=== PATIENT | female | born 1990 | race Asian ===

== ENCOUNTER 2022-12-08 13:03 | Outpatient (CLI) | payer BC ==
[~2022-12-08] VITALS: Ht 147.3 cm; Wt 62.7 kg
--- NOTE | 2022-12-08 13:00 | NUR ---
Pt arrived on unit ambulatory and with concerns for bleeding. Pt reports she was seen this early breastfeeding care specialist on the OB unit but sent home. Pt reports occasional contractions and some bleeding that started after she was sent home. Pt denies any leaking of fluid and reports normal movement. EFM and toco monitors started. Vital signs WNL. SVE by this RN /-2 with bloody show noted on exam. Dr. Dyer notified. See physician notification for details.
[2022-12-08] MEDS ORDERED: PRENATAL (13:36)
[2022-12-08] MEDS ORDERED: NATURAL IRON65 MG (13:37)
[2022-12-08 14:00] VITALS: BP 112/64; PULSE 69; TEMP 97.9
--- NOTE | 2022-12-08 15:04 | NUR ---
Pt off EFM to ambulate and use the birthing ball.
--- NOTE | 2022-12-08 16:45 | NUR ---
SVE with no change. Pt requesting to go home until labor contractions worsen. Dr Dyer notified. Discharge instructions, labor precautions and follow up care reviewed with pt and .
== END 2022-12-08 17:10 | disposition home or self-care (01) ==
LOC: LDRO 13:03
DX: Z34.93 Encounter for supervision of normal pregnancy, unspecified, third trimester (principal); Z3A.40 40 weeks gestation of pregnancy

== ENCOUNTER 2022-12-09 08:39 | Inpatient (IN) | payer BC ==
[~2022-12-09] VITALS: Ht 147.3 cm; Wt 63.0 kg
[2022-12-09] VITALS (36 sets, daily range): BP systolic 95–124; BP diastolic 53–84; PULSE 60–82; TEMP 97.8–98.6
[~2022-12-09 08:39] MED LIST: NATURAL IRON65 MG; PRENATAL
--- NOTE | 2022-12-09 08:50 | NUR ---
Pt arrived on unit ambulatory and with concerns for worsening contractions. Pt denies any leaking of fluid but report continued bleeding and reports normal movement. EFM and toco monitors started. Vital signs WNL. SVE by this RN /-2 with bloody show noted on exam glove. Dr. Dyer on the unit and notified. See physician notification for details.
--- NOTE | 2022-12-09 09:10 | NUR ---
0910Report received from Kojo Carbajal RN. RN to bedside and reviews plan of care with pt and spouse. 0920IV to left FA. Labs obtained via IV site. LR infusing. Pt requesting epidural. 926L. Jose DIRECTOR OF BROADCAST notified pt requesting epidural. Labs pending. Per Darwin Garcia CRNA, Jacques Cadena CRNA will be on unit to place epidural in approx 20min. 0937Pt up to bathroom to void. 49Dr. Dyer to bedside. Reviews plan of care with pt to include AROM. Pt agreeable. AROM at this time for moderate amout of clear amniotic fluid. Marielos care provided, pt wedge right. SVE per Dr. Dyer . 0959Jacques Cadena CRNA at bedside for epidural placement. Pt to edge of bed. FHR tracing intermittently due to maternal position. RN remains at bedside. 1005Single shot at this time by Jacques Cadena CRNA. 1009Pt wedge left. Plan of care and safety precautions reviewed with pt who verbalizes understanding. Resting with call light within reach.
[2022-12-09 09:33] LABS: BASO % 0.1 % (0.0-2.0); GRAN # 12.4 K/mm3 (1.4-6.5); GRAN % 87.3 % (42.2-75.2); HEMATOCRIT 41.7 % (37.0-47.0); HEMOGLOBIN 14.2 g/dl (12.5-16.0); LYMPH # 1.2 K/mm3 (1.2-3.4); LYMPH % 8.4 % (20.0-51.0); MEAN CELL VOLUME 85 fl (80.0-100.0); MEAN CORPUSCULAR HEMOGLOBIN 29 pg (27-31); MEAN CORPUSCULAR HGB CONC 34 g/dl (33.0-37.0); MONO # 0.5 K/mm3 (0.1-0.6); MONO % 3.6 % (1.7-9.3); PLATELET COUNT 179 K/mm3 (130-400); RED BLOOD COUNT 4.92 M/mm3 (4.10-5.30); REDCELL DISTRIBUTION WIDTH-CV 17.7 % (11.5-14.5)
--- NOTE | 2022-12-09 13:05 | NUR ---
1305Dr. Manisha at nurses desk and reviews strip. Orders to augment with pitocin per protocol. 1308Plan of care reviewed with pt and spouse who verbalizes understanding and agreement to pitocin augmentation.
--- NOTE | 2022-12-09 13:54 | NUR ---
1354SVE C/+2. Catheter removed. Marielos care provided. Patient instructed on pushing with ctx. 1402Pt begins to push with contractions with RN at bedside. 1500Patient continues to push with ctx. RN remains at bedside. Strong maternal effort. Slow progress. 1518Small crown noted with pushes. Prolonged 3min decel with FHR down to 80bmp. LR bolus. Dr. Dyer updated on pt. See physician notification. 1525DrMainor Dyer at bedside for delivery. 1600DrMainor Dyer consents pt for VAVD. Pt agreeable to plan of care. Darwin Garcia RAW SCALES OPERATOR notified and at bedside. Vacuum placed to occiput. 1602Traction applied via vacuum by Dr. Dyer while pt continues to push with contractions. Pop off x1. 1606VAVD of viable male . To mother's chest where dried and stimulated by nursery RN. Pitocin paused. 1608Cord clamped x2 and cut by father of . Care of assumed by Sheldon Kaur RN. 1610Spontaneous and intact delivery of placenta. Pitocin to 333ml/hr per orders. Bilat labial and 2nd degree perineal laceration repaired by Dr. Dyer. Fundus firm, midline, bleeeding minial. See anesthesia record, nurses notes, and physician notification.
--- NOTE | 2022-12-09 19:45 | NUR ---
Pt able to sit onto side of bed, with the assistance of the Lynnette Aguila is able to stand and then be moved to room 208. Accompanied by spouse. Pt settled into bed and denies any needs at this time.
--- NOTE | 2022-12-09 20:15 | NUR ---
Pt up to the bathroom with assistance from RN. Pt is able to slowly move herself to edge of bed and this RN assists pt in slowly walking to the bathroom. Pt voids at this time and is helped back to bed.
--- NOTE | 2022-12-09 23:25 | NUR ---
Pt helped to the bathroom, pt voids and RN assists in changing pt's icepack. Vitals obtained and pain medication also given during this time. Pt walks a few steps around her room and then sits on the side of the bed. Denies any other needs at this time.
[2022-12-10 05:10] VITALS: BP 91/57; PULSE 75; TEMP 97.6
[2022-12-10 06:40] VITALS: BP 113/74; PULSE 80; TEMP 98.2
[2022-12-10 16:10] VITALS: BP 99/67; PULSE 80; TEMP 98.3
[2022-12-10 21:00] VITALS: BP 101/55; PULSE 78; TEMP 98.2
[2022-12-11 04:00] VITALS: BP 100/56; PULSE 68; TEMP 98
--- NOTE | 2022-12-11 04:29 | NUR ---
PT HAS DECLINED THE MOTRIN THIS SHIFT. ENCOURAGED TO TAKE IF NEEDED- PT STATES TYLENOL HAS BEEN DOING OK WITH HER PAIN.
--- NOTE | 2022-12-11 04:45 | NUR ---
MOM AND DAD UPDATED ON BABY'S CARE AND LAST 2 FEEDINGS. MOM DECLINED THE MOTRIN
[2022-12-11 06:50] VITALS: BP 93/51; PULSE 66; TEMP 98.3
[2022-12-11] MEDS ORDERED: IBU600 MG PO (08:42)
[2022-12-11] MEDS ORDERED: TYLENOL 500MG500 MG PO (08:43)
--- NOTE | 2022-12-11 10:44 | NUR ---
1045 PATIENT REFUSES SCHEDULED DOSES OFACETAMINOPHEN AND IBUPROFEN.THIS NURSE EDUCATES THE PATIENT ON THE IMPORTANCE OF THE SCHEDULED PAIN MEDICATIONS TO STAY ON TOP OF HER PAIN.PATIENT CONTINUES TO REFUSE.
== END 2022-12-11 14:20 | disposition home or self-care (01) | DRG 807 ==
LOC: LDRO 08:39 → OB 09:12 → LDR 09:12 → OB 19:45
PROVIDERS: ADMIT Obstetrics & Gynecology
PROC: 10D07Z6 Extraction of Products of Conception, Vacuum, Via Natural or Artificial Opening (ICD-10-PCS; principal; 2022-12-09)
PROC: 0KQM0ZZ Repair Perineum Muscle, Open Approach (ICD-10-PCS; 2022-12-09)
DX: O48.0 Post-term pregnancy (principal); Z37.0 Single live birth; Z3A.40 40 weeks gestation of pregnancy; O99.02 Anemia complicating childbirth; D64.9 Anemia, unspecified; O70.1 Second degree perineal laceration during delivery
CPT/HCPCS: J2590; J2795; J7120